=== PATIENT | male | born 1965 | race Caucasian/White ===

== ENCOUNTER 2017-12-02 20:59 | Inpatient (IN) | payer MEDICARE, MEDICAID ==
[~2017-12-02] VITALS: Ht 149.9 cm; Wt 59.0 kg
[2017-12-02] MEDS ORDERED: normal saline 1000ml 1,000 ML IV ONE (21:37)
[2017-12-02 21:54] LABS: INR 0.9 INR; PARTIAL THROMBOPLASTIN TIME 24 SECONDS (22-32); PROTHROMBIN TIME 9.8 SECONDS (9.0-12.0)
[2017-12-02 22:01] LABS: BASOPHILS % (AUTO) 0.6 % (0-1); EOSINOPHILS # (AUTO) 0.1 X10'3 (0-0.9); EOSINOPHILS % (AUTO) 0.9 % (0-6); HEMATOCRIT 40.3 % (42.0-52.0); HEMOGLOBIN 13.9 g/dl (14.0-17.9); LYMPHOCYTES # (AUTO) 2.4 X10'3 (1.1-4.8); LYMPHOCYTES % (AUTO) 34.3 % (21-51); MEAN CORPUSCULAR HGB CONC 34.5 % (33.0-36.5); MEAN CORPUSCULAR VOLUME 95.9 FL (78-98); MEAN PLATELET VOLUME 7.4 FL (7.4-10.4); MONOCYTES # (AUTO) 0.6 X10'3 (0-0.9); MONOCYTES % (AUTO) 8.4 % (2-12); NEUTROPHILS # (AUTO) 3.8 X10'3 (1.8-7.7); NEUTROPHILS % (AUTO) 55.8 % (42-75); PLATELET COUNT 265 X10'3 (140-440); RED BLOOD COUNT 4.21 X10'6 (4.70-6.10); RED CELL DISTRIBUTION WIDTH 14.5 % (11.5-14.5); WHITE BLOOD COUNT 6.9 X10'3 (4.5-11.0)
[2017-12-02 22:08] LABS: ALANINE AMINOTRANSFERASE 15 U/L (12-78); ALBUMIN 3.4 G/DL (3.4-5.0); ALKALINE PHOSPHATASE 60 IU/L (46-116); ANION GAP 9 (8-16); ASPARTATE AMINO TRANSFERASE 20 U/L (10-37); BILIRUBIN,TOTAL 0.2 MG/DL (0.1-1.0); BLOOD UREA NITROGEN 20 MG/DL (7-18); BUN/CREATININE RATIO 16.9 (5.4-32.0); CALCIUM 8.9 MG/DL (8.5-10.1); CHLORIDE 105 MMOL/L (99-107); CREATININE 1.18 MG/DL (0.60-1.10); GLUCOSE 121 MG/DL (70-104); MAGNESIUM 2.4 MG/DL (1.5-2.4); POTASSIUM 3.5 MMOL/L (3.5-5.1); SODIUM 143 MMOL/L (135-145); TOTAL CARBON DIOXIDE 28.6 MMOL/L (24-32); TOTAL PROTEIN 6.9 G/DL (6.4-8.2); eGFR 65 ML/MIN
[2017-12-02] MEDS ORDERED: normal saline 1000ML IV soln IVB ONE (22:15)
[2017-12-02] MEDS ORDERED: iohexol 350MG/ML 100ml bottle IV ONE (22:23)
[2017-12-02] MEDS ORDERED: MULT1CAP44 PO (23:36)
[2017-12-02] MEDS ORDERED: LEVO100T PO (23:36)
[2017-12-02] MEDS ORDERED: ADV50100 IH (23:36)
[2017-12-02] MEDS ORDERED: FINA5TAB11 PO (23:36)
[2017-12-02] MEDS ORDERED: NIA500ERT PO (23:36)
[2017-12-02] MEDS ORDERED: LORA10TA7 PO (23:36)
[2017-12-02] MEDS ORDERED: ASCO500C15 PO (23:36)
[2017-12-02] MEDS ORDERED: FISH1CAP15 PO (23:39)
[2017-12-02] MEDS ORDERED: aspirin 325mg tablet PO ONE (23:40)
[2017-12-03] MEDS ORDERED: ondansetron/PF 4mg/2ml inj IV PRN (00:10)
[2017-12-03] MEDS ORDERED: acetaminophen 325mg tablet PO PRN ×2 (00:10)
[2017-12-03] MEDS ORDERED: mag hydrox/Alum hydrox/simeth 30ml oral suspension PO PRN (00:10)
[2017-12-03] MEDS ORDERED: HYDROcodone/acetaminophen 5mg/325mg tablet PO PRN (00:10)
[2017-12-03] MEDS ORDERED: magnesium hydroxide 30ml (MOM) UD suspension PO PRN (00:10)
[2017-12-03 00:31] LABS: CLARITY,URINE CLEAR (Clear); COLOR,URINE YELLOW (Yellow); GLUCOSE, URINE NEGATIVE (Neg); KETONES,URINE NEGATIVE (Neg); LEUKOCYTE ESTERASE ,URINE NEGATIVE (Neg); NITRITES, URINE NEGATIVE (Neg); OCCULT BLOOD,URINE NEGATIVE (Neg); PH,URINE 6.5 (4.8-8.0); PROTEIN,URINE NEGATIVE (Neg); UROBILINOGEN,URINE 0.2 E.U/dL (0.2-1.0)
[2017-12-03 00:39] LABS: UA COLLECTION TYPE CLN CATCH MIDSTREAM
[2017-12-03 05:16] LABS: CHOL/HDL RATIO 2.7 (0.00-4.99); CHOLESTEROL 196 MG/DL (0-200); HDL CHOLESTEROL 73 MG/DL (35-60); LDL CHOLESTEROL 115 MG/DL (50-100); TRIGLYCERIDES 41 MG/DL (20-135)
[2017-12-03] MEDS ORDERED: non-formulary drug (Fluticasone/Salmeterol* (Advair 100-50 Diskus*) 1 INH) IH SCH (08:00)
[2017-12-03] MEDS ORDERED: niacin 500mg ER (Niaspan) tablet PO SCH (08:00)
[2017-12-03] MEDS: levoTHYROXINE 100mcg tablet PO SCH (08:32)
[2017-12-03] MEDS: niacin 500mg timed-release capsule PO SCH (08:32)
[2017-12-03] MEDS: finasteride 5mg tablet PO SCH (08:32)
[2017-12-03] MEDS: loratadine 10mg tablet PO SCH (08:33)
[2017-12-03] MEDS: multivitamins, therapeutics tablet PO SCH (08:33)
[2017-12-03] MEDS: ascorbic acid 500mg tablet PO SCH (08:33)
[2017-12-03] MEDS: aspirin 81mg tablet.DR PO SCH (08:33)
[2017-12-03] MEDS: enoxaparin 40mg/0.4ml syringe SUBCUT SCH (08:34)
[2017-12-03 16:00] VITALS: BP 95/53
[2017-12-03 18:00] VITALS: BP 109/64
[2017-12-03] MEDS ORDERED: temazepam 15mg capsule PO PRN (21:00)
[2017-12-03 22:30] VITALS: BP 107/65
[2017-12-04 02:00] VITALS: BP 103/56
[2017-12-04 06:00] VITALS: BP 91/56
[2017-12-04 07:03] LABS: BASOPHILS # (AUTO) 0.1 X10'3 (0-0.2); EOSINOPHILS # (AUTO) 0.1 X10'3 (0-0.9); EOSINOPHILS % (AUTO) 1.3 % (0-6); HEMATOCRIT 40.7 % (42.0-52.0); HEMOGLOBIN 13.9 g/dl (14.0-17.9); LYMPHOCYTES # (AUTO) 2.2 X10'3 (1.1-4.8); LYMPHOCYTES % (AUTO) 32.7 % (21-51); MEAN CORPUSCULAR HEMOGLOBIN 33.3 PG (27.0-31.0); MEAN CORPUSCULAR HGB CONC 34.3 % (33.0-36.5); MEAN CORPUSCULAR VOLUME 97.1 FL (78-98); MONOCYTES # (AUTO) 0.5 X10'3 (0-0.9); MONOCYTES % (AUTO) 7.8 % (2-12); NEUTROPHILS # (AUTO) 3.9 X10'3 (1.8-7.7); NEUTROPHILS % (AUTO) 57.2 % (42-75); PLATELET COUNT 248 X10'3 (140-440); RED BLOOD COUNT 4.19 X10'6 (4.70-6.10); RED CELL DISTRIBUTION WIDTH 14.8 % (11.5-14.5); WHITE BLOOD COUNT 6.8 X10'3 (4.5-11.0)
[2017-12-04 07:13] LABS: ALBUMIN 3.1 G/DL (3.4-5.0); ANION GAP 10 (8-16); BLOOD UREA NITROGEN 14 MG/DL (7-18); BUN/CREATININE RATIO 15.7 (5.4-32.0); CALCIUM 8.3 MG/DL (8.5-10.1); CHLORIDE 107 MMOL/L (99-107); CREATININE 0.89 MG/DL (0.60-1.10); GLUCOSE 102 MG/DL (70-104); POTASSIUM 3.8 MMOL/L (3.5-5.1); SODIUM 143 MMOL/L (135-145); TOTAL CARBON DIOXIDE 26.1 MMOL/L (24-32); eGFR 90 ML/MIN
[2017-12-04] MEDS: niacin 500mg timed-release capsule PO SCH (08:00)
[2017-12-04] MEDS: ascorbic acid 500mg tablet PO SCH (09:27)
[2017-12-04] MEDS: multivitamins, therapeutics tablet PO SCH (09:27)
[2017-12-04] MEDS: loratadine 10mg tablet PO SCH (09:29)
[2017-12-04] MEDS: aspirin 81mg tablet.DR PO SCH (09:31)
[2017-12-04] MEDS: levoTHYROXINE 100mcg tablet PO SCH (09:31)
[2017-12-04] MEDS: finasteride 5mg tablet PO SCH (09:32)
[2017-12-04] MEDS: enoxaparin 40mg/0.4ml syringe SUBCUT SCH (09:35)
[2017-12-04 10:00] VITALS: BP 97/55
[2017-12-04] MEDS ORDERED: ATOR10TA PO (11:43)
[2017-12-04] MEDS ORDERED: ASPI81TA52 PO (11:43)
== END 2017-12-04 13:50 | disposition home health service (06) | DRG 65 ==
LOC: ER 20:59 → ED HOLD 12-03 00:09 → ORTHO 4S 12-03 16:00
PROVIDERS: ADMIT Hospitalist; ATTEND Family Medicine
PROC: B3251ZZ Computerized Tomography (CT Scan) of Bilateral Common Carotid Arteries using Low Osmolar Contrast (ICD-10-PCS; principal; 2017-12-02)
PROC: B32G1ZZ Computerized Tomography (CT Scan) of Bilateral Vertebral Arteries using Low Osmolar Contrast (ICD-10-PCS; 2017-12-02)
PROC: B3281ZZ Computerized Tomography (CT Scan) of Bilateral Internal Carotid Arteries using Low Osmolar Contrast (ICD-10-PCS; 2017-12-02)
DX: I63.9 Cerebral infarction, unspecified (principal); G81.91 Hemiplegia, unspecified affecting right dominant side; E03.9 Hypothyroidism, unspecified; Q90.9 Down syndrome, unspecified; Z88.2 Allergy status to sulfonamides; Z79.899 Other long term (current) drug therapy
CPT/HCPCS: 36415; 70450; 70496; 70498; 70551; 71045; 80048; 80053; 80061; 81003; 83735; 84443; 84484; 85025; 85610; 85651; 85730; 87070; 92616; 93005; 93306; 93880; 94640; 94760; 97162; 97530; 99291; J1650; J7030; Q9967